=== PATIENT | female | born 1945 | race Caucasian/White ===

== ENCOUNTER 2016-10-16 05:56 | Emergency (ER) | payer OTHER ==
[~2016-10-16] VITALS: Ht 167.6 cm; Wt 90.7 kg
[~2016-10-16 05:56] MED LIST: ASPIRIN325 M2 PO; COMBIGAN EYE DRO5 ML OP; JANUMET 50-1,01 EACH PO; LEVEMIR FL100 UNIT/1 SC; LEVOTHYROXINE75 MCG PO; LIPITOR80 M1 PO; LOSARTAN POTASS25 M1 PO; NOVOLOG FL100 UNIT/1 SC; PLAVIX75 M1 PO; SERTRALINE HCL25 MG PO; TRAMADOL50 MG PO; VITAMIN D31000 UNI2 PO
[2016-10-16 06:01] VITALS: BP 163/99
--- NOTE | 2016-10-16 06:01 | ED AMS/SEIZURE/WEAK/DIZZY ---
History of Present Illness General Chief Complaint: General Adult Stated Complaint: LOW BLOOD SUGAR Source: patient, EMS Exam Limitations: no limitations Vital Signs & Intake/Output Vital Signs & Intake/Output Vital Signs Date Time Temp Pulse Resp B/P B/P Pulse O2 O2 Flow FiO2 Mean Ox Delivery Rate 10/16 0601 99.8 55 18 163/99 94 Room Air Allergies Coded Allergies: MDX - Radiological Contrast Media, (Radiological Contrast Media, Iodine) ( Intermediate, HIVES 03/02/14) Reconcile Medications Aspirin (Aspirin*) 325 MG TABLET 1 TAB PO DAILY HEART HEALTH (Reported) Atorvastatin Calcium (Lipitor) 80 MG TABLET 1 TAB PO DAILY CHOLESTEROL ( Reported) Brimonidine Tartrate/Timolol (Combigan Eye Drops) 0.2 %-0.5 % DROPS 1 DROP OP BID GLAUCOMA (Reported) Cholecalciferol (Vitamin D3) 1,000 UNIT TABLET 3 TAB PO DAILY SUPPLEMENT ( Reported) Clopidogrel Bisulfate (Plavix) 75 MG TABLET 1 TAB PO DAILY BLOOD THINNER ( Reported) Insulin Aspart, Recombinant (Novolog Flexpen) 100 UNIT/ML INSULN.PEN 15 U SC AC DIABETES (Reported) Insulin Detemir (Levemir Flextouch) 100 UNIT/ML (3 ML) INSULN.PEN 25 U SC QPM DIABETES (Reported) Levothyroxine Sodium 75 MCG TABLET 1 TAB PO DAILY AC THYROID (Reported) Losartan Potassium 25 MG TABLET 1 TAB PO DAILY HEART (Reported) Sertraline HCl 25 MG TABLET 3 TAB PO DAILY DEPRESSION (Reported) Sitagliptin Phos/Metformin HCl (Janumet 50-1,000 MG Tablet) (Unknown Strength) TABLET (Unknown Dose) PO BID DIABETES (Reported) TRAMADOL HCL (Tramadol) 50 MG TABLET 1-2 TAB PO Q8P PRN PAIN Triage Nurses Notes Reviewed? yes Onset: Abrupt Duration: hour(s): Timing: recent history Injury Environment: home Severity: moderate Modifying Factors: Improves With: other (better w/glucose). Associated Symptoms: weakness HPI: 71 yo woman on levamir 20 u qhs and novolog 20u tid, presents after an episode of hypoglycemia. She notes that her blood glucose was 60 at approximately 3 AM. She reports he drank 1 glass of orange juice. 911 was called when she was found to be unresponsive. The medics arrived approximately at 5 AM. Her glucose was 30. She was given IV glucose. She aroused herself although was slightly confused. Her glucose after the dextrose infusion was in the low 100s. Ports that she has had, "a cold." She reports that she has not been eating her normal diet. She has been taking her Levemir as prescribed. She reports that she now feels normal. She had no chest pain shortness of breath abdominal pain nausea vomiting diarrhea. (SHEILA MERCER MD) Past History Medical History Any Pertinent Medical History? see below for history Cardiovascular: hypertension, hyperlipidemia Musculoskeletal: fibromyalgia, osteoarthritis Endocrine: IDDM Surgical History Surgical History: none Psychosocial History Who do you live with Sister What is your primary language Salvadorean Family History Hx Contributory? No (SHEILA MERCER MD) Review of Systems Review of Systems Constitutional: Reports: no symptoms. EENTM: Reports: no symptoms. Respiratory: Reports: no symptoms. Cardiovascular: Reports: no symptoms. GI: Reports: no symptoms. Genitourinary: Reports: no symptoms. Musculoskeletal: Reports: no symptoms. Skin: Reports: no symptoms. Neurological/Psychological: Reports: no symptoms. Hematologic/Endocrine: Reports: no symptoms. Immunologic/Allergic: Reports: no symptoms. All Other Systems: Reviewed and Negative (SHEILA MERCER MD) Physical Exam Physical Exam General Appearance: well developed/nourished, mild distress, slightly diaphoretic Head: atraumatic, normal appearance Eyes: Bilateral: normal appearance, PERRL, EOMI. Ears, Nose, Throat: normal pharynx, normal ENT inspection, hearing grossly normal Neck: normal inspection, supple, full range of motion Respiratory: normal breath sounds, chest non-tender, no respiratory distress, quiet respiration, lungs clear Cardiovascular: regular rate/rhythm Gastrointestinal: normal bowel sounds, soft, non-tender, no organomegaly Back: normal inspection, normal range of motion Extremities: normal range of motion Neurologic/Psych: no motor/sensory deficits, awake, alert, oriented x 3 Skin: intact, normal color, warm/dry Core Measures ACS in differential dx? No CVA/TIA Diagnosis: No Severe Sepsis Present: No Septic Shock Present: No (SHEILA MERCER MD) Progress Differential Diagnosis: hypoglycemia, vs mi vs electrolyte abnormality. Plan of Care: Orders Procedure Date/time Status Consistent Carbohydrate 1 10/16 L Active Laboratory Tests 10/16/16 0601: Troponin I Cancelled, CBC w Diff Cancelled, WBC Cancelled, RBC Cancelled, Hgb Cancelled, Hct Cancelled, MCV Cancelled, MCH Cancelled, RDW Cancelled, Plt Count Cancelled, MPV Cancelled, PUBS MCHC Cancelled, Urine Color Cancelled, Urine Clarity Cancelled, Urine pH Cancelled, Ur Specific [place] Cancelled, Urine Protein Cancelled, Urine Ketones Cancelled, Urine Nitrite Cancelled, Urine Bilirubin Cancelled, Urine Urobilinogen Cancelled, Ur Leukocyte Esterase Cancelled, Ur Microscopic Cancelled, Urine Hemoglobin Cancelled, Urine Glucose Cancelled Initial ED EKG: pt declines Hand-Off Endorsed To: DANIELLE STERN MD Endorsed Time: 0700 Pending: other (FOLLOW UP GLUCOSE) (FELIX FLEMING,SHEILA Thomas) Comments: 10/16/2016 07:00 patient signed out to me by Dr. Mercer at [employer]. Patient's blood glucose was in the mid 70s after 3 drinks of orange juice with sugar. A dietary tray has been ordered with the patient does not wish to wait for this to arrival. At this point she is awake alert and has a stable gait. I feel she is capable of medical decision making. She will be discharged with instructions to eat as soon as possible. (WILFREDO FLEMING,DANIELLE Pineda) Departure Departure Disposition: HOME OR SELF CARE Condition: Stable Clinical Impression Primary Impression: Hypoglycemia Referrals: KJ FLEMING,JENNIFER Otoole (PCP/Family) Departure Forms: Customer Survey General Discharge Information Comments 10/16/16, 7AM... discussed at length with patient.... she decline blood draw. She is awake and alert, clear-headed, axox3. She states, "I don't need any labs... I feel fine... I just need a ride to go home." Pt had low glucose... pt to be fed diabetic breakfast and will re-evaluate. pt signed out to dr. stern. (FELIX FLEMING,SHEILA Thomas) Departure Additional Instructions: Eat a meal as soon as possible. Monitor sugar levels before each meal and at bedtime today. Notify your primary care doctor of this emergency department visit and treatment plan. Return if any concerns or sudden worsening. (WILFREDO FLEMING,DANIELLE Pineda)
== END 2016-10-16 08:01 ==
LOC: ERH 05:56
DX: E11.649 Type 2 diabetes mellitus with hypoglycemia without coma (principal); Z79.4 Long term (current) use of insulin